=== PATIENT | male | born 1950 | race Caucasian/White ===

== ENCOUNTER 2022-12-28 16:41 | Inpatient (IN) | payer OTHER, SELFPAY ==
[~2022-12-28] VITALS: Ht 177.8 cm; Wt 83.8 kg
[2022-12-28 20:10] VITALS: BP 138/86; TEMP 98.2; O2SAT 92
[2022-12-28] MEDS: ACETAMINOPHEN 650MG ER TAB (TYLENOL ARTHRITIS) PO SCH (21:00)
[2022-12-28] MEDS ORDERED: MOM 30ML SUSPENSION UDC PO PRN (21:30)
[2022-12-28] MEDS ORDERED: MAALOX 30 ML SUSP *UDC PO PRN (21:30)
[2022-12-28] MEDS ORDERED: ACETAMINOPHEN TAB 650MG DOSE (2X325MG) PO PRN (21:30)
[2022-12-28] MEDS ORDERED: PRED1TABL PO (21:34)
[2022-12-28] MEDS ORDERED: OMEP40CA5 PO (21:34)
[2022-12-28] MEDS ORDERED: ASPI81TA26 PO (21:34)
[2022-12-28] MEDS ORDERED: AMLO1TAB25 PO (21:34)
[2022-12-28] MEDS ORDERED: ATOR40TA75 PO (21:34)
[2022-12-28] MEDS ORDERED: PYRI60TA2 PO (21:34)
[2022-12-28] MEDS ORDERED: VITA500C24 PO (21:34)
[2022-12-28] MEDS ORDERED: THERTAB52 PO (21:34)
[2022-12-28] MEDS ORDERED: POTA-151 PO (21:34)
[2022-12-28] MEDS ORDERED: IBUP1TAB6 PO (21:34)
[2022-12-28] MEDS ORDERED: TIZA10TA PO (21:34)
[2022-12-28] MEDS ORDERED: FOLI1TAB11 PO (21:34)
[2022-12-28] MEDS ORDERED: ACET650T61 PO (21:34)
[2022-12-28] MEDS ORDERED: METH2.5T48 PO (21:34)
[2022-12-28] MEDS ORDERED: GARL500C2 PO (21:34)
[2022-12-28] MEDS ORDERED: DOCU100C16 PO (21:34)
[2022-12-28] MEDS ORDERED: TUMS500C PO (21:34)
[2022-12-28] MEDS ORDERED: OMEGCAP9 PO (21:34)
[2022-12-28] MEDS ORDERED: B-12100021 PO (21:34)
[2022-12-28] MEDS ORDERED: LISI10TA22 PO (21:34)
[2022-12-28] MEDS ORDERED: HYDR50TAB PO (21:34)
[2022-12-28] MEDS ORDERED: HOME MED LIST COMPLETE! XX SCH (21:35)
[2022-12-28 22:00] VITALS: BP 132/60; TEMP 99; O2SAT 93
[2022-12-28 22:37] LABS: HEMATOCRIT 43.7 % (42.0-52.0); HEMOGLOBIN 15.1 g/dl (13.5-17.5); LYMPH # 0.4 10^3/uL (1.5-5.0); LYMPH % 8.2 % (24.0-44.0); MEAN CORPUSCULAR HEMOGLOBIN 31.5 pg (27.0-33.0); MEAN CORPUSCULAR HGB CONC 34.6 g/dl (32.0-36.5); MONO # 0.3 10^3/uL (0.0-0.8); MONO % 6.3 % (2.0-8.0); NEUTROPHILS # 4.6 10^3/uL (1.5-8.5); NEUTROPHILS % 85.3 % (36.0-66.0); PLATELET COUNT, AUTOMATED 207 10^3/uL (150-450); WHITE BLOOD COUNT 5.4 10^3/uL (4.0-10.0)
[2022-12-28 22:51] LABS: RSV AMPLIFICATION NEGATIVE (NEGATIVE)
[2022-12-28 22:59] LABS: BLOOD UREA NITROGEN 21 MG/DL (9-23); CALCIUM LEVEL 8.9 MG/DL (8.3-10.6); CARBON DIOXIDE LEVEL 27 MMOL/L (20-31); CHLORIDE LEVEL 100 MMOL/L (98-107); CREATININE FOR GFR 0.88 MG/DL (0.70-1.30); GLOMERULAR FILTRATION RATE > 60.0 (>42); GLUCOSE, FASTING 191 MG/DL (74-106); MAGNESIUM LEVEL 1.7 MG/DL (1.8-2.4); POTASSIUM SERUM 3.9 MMOL/L (3.5-5.1); SODIUM LEVEL 135 MMOL/L (136-145)
[2022-12-28] MEDS ORDERED: MAG SULF 1GM/100ML (MAG RUN) 1 GM in IV 1 EA IV ONE (23:00)
[2022-12-28] MEDS: CALCIUM CARBONATE 500 MG CHEW U/D PO SCH (23:12)
[2022-12-28] MEDS: DOCUSATE SODIUM 100MG CAPSULE PO SCH (23:13)
[2022-12-28] MEDS: tiZANidine 4 MG TAB PO SCH (23:13)
[2022-12-28] MEDS: PYRIDOSTIGMINE 60MG TABLET PO SCH (23:13)
[2022-12-29] VITALS (15 sets, daily range): BP systolic 109–139; BP diastolic 57–70; TEMP 97.9–99.1; O2SAT 90–96
[2022-12-29 05:10] LABS: BASO % 0.2 % (0.0-1.0); EOS % 0.7 % (0.0-3.0); HEMATOCRIT 43.2 % (42.0-52.0); HEMOGLOBIN 14.7 g/dl (13.5-17.5); LYMPH % 18.1 % (24.0-44.0); MEAN CORPUSCULAR HEMOGLOBIN 30.8 pg (27.0-33.0); MEAN CORPUSCULAR VOLUME 90.6 fl (80.0-96.0); MONO # 0.4 10^3/uL (0.0-0.8); NEUTROPHILS % 73.8 % (36.0-66.0); PLATELET COUNT, AUTOMATED 183 10^3/uL (150-450); RED BLOOD COUNT 4.77 10^6/uL (4.30-6.10); WHITE BLOOD COUNT 5.4 10^3/uL (4.0-10.0)
[2022-12-29 05:36] LABS: BLOOD UREA NITROGEN 19 MG/DL (9-23); CALCIUM LEVEL 8.7 MG/DL (8.3-10.6); CARBON DIOXIDE LEVEL 30 MMOL/L (20-31); CHLORIDE LEVEL 102 MMOL/L (98-107); CREATININE FOR GFR 0.93 MG/DL (0.70-1.30); GLOMERULAR FILTRATION RATE > 60.0 (>42); GLUCOSE, FASTING 95 MG/DL (74-106); MAGNESIUM LEVEL 1.9 MG/DL (1.8-2.4); POTASSIUM SERUM 3.5 MMOL/L (3.5-5.1); SODIUM LEVEL 136 MMOL/L (136-145)
[2022-12-29] MEDS: PYRIDOSTIGMINE 60MG TABLET PO SCH ×5 (06:15→19:58)
[2022-12-29] MEDS: HEPARIN SOD (PORCINE) 5000UNITS/ML 1ML VIAL/SYRINGE SC SCH ×3 (06:15→21:57)
[2022-12-29] MEDS ORDERED: IMMUNE GLOBULIN IV SCH (09:00)
[2022-12-29] MEDS: methylPREDNISolone 125MG 2ML VIAL IV SCH (09:45)
[2022-12-29] MEDS: ASCORBIC ACID 500 MG TAB PO SCH (09:46)
[2022-12-29] MEDS: ATORVASTATIN 20 MG TAB PO SCH (09:46)
[2022-12-29] MEDS: FOLIC ACID 1MG TAB PO SCH (09:46)
[2022-12-29] MEDS: ASPIRIN 81MG ENTERIC TABLET PO SCH (09:46)
[2022-12-29] MEDS: OMEPRAZOLE 20MG CAP PO SCH (14:04)
[2022-12-29] MEDS: IMMUNE GLOBULIN 10% 40 GM in IV 1 EA IV SCH (14:06)
[2022-12-29] MEDS: IMMUNE GLOBULIN 10% 20 GM in IV 1 EA IV SCH (14:07)
[2022-12-29] MEDS: tiZANidine 4 MG TAB PO SCH (19:59)
[2022-12-29] MEDS: CALCIUM CARBONATE 500 MG CHEW U/D PO SCH (19:59)
[2022-12-29] MEDS: ACETAMINOPHEN 650MG ER TAB (TYLENOL ARTHRITIS) PO SCH (19:59)
[2022-12-29] MEDS: DOCUSATE SODIUM 100MG CAPSULE PO SCH (20:09)
[2022-12-29] MEDS ORDERED: ACETAMINOPHEN 650MG ER TAB (TYLENOL ARTHRITIS) PO SCH (21:00)
[2022-12-29] MEDS ORDERED: DOCUSATE SODIUM 100MG CAPSULE PO SCH (21:00)
[2022-12-29] MEDS ORDERED: tiZANidine 4 MG TAB PO SCH (21:00)
[2022-12-29] MEDS ORDERED: CALCIUM CARBONATE 500 MG CHEW U/D PO SCH (21:00)
[2022-12-30 04:00] VITALS: BP 116/69; TEMP 98; O2SAT 96
[2022-12-30 05:16] LABS: HEMATOCRIT 41.4 % (42.0-52.0); HEMOGLOBIN 14.4 g/dl (13.5-17.5); LYMPH # 0.5 10^3/uL (1.5-5.0); LYMPH % 10.5 % (24.0-44.0); MEAN CORPUSCULAR HEMOGLOBIN 31.6 pg (27.0-33.0); MEAN CORPUSCULAR HGB CONC 34.8 g/dl (32.0-36.5); MEAN CORPUSCULAR VOLUME 90.8 fl (80.0-96.0); MONO # 0.4 10^3/uL (0.0-0.8); MONO % 8.7 % (2.0-8.0); NEUTROPHILS % 80.4 % (36.0-66.0); PLATELET COUNT, AUTOMATED 199 10^3/uL (150-450); RED BLOOD COUNT 4.56 10^6/uL (4.30-6.10); WHITE BLOOD COUNT 4.9 10^3/uL (4.0-10.0)
[2022-12-30] MEDS: HEPARIN SOD (PORCINE) 5000UNITS/ML 1ML VIAL/SYRINGE SC SCH ×3 (05:42→20:40)
[2022-12-30] MEDS: PYRIDOSTIGMINE 60MG TABLET PO SCH ×5 (05:42→20:40)
[2022-12-30 05:48] LABS: BLOOD UREA NITROGEN 25 MG/DL (9-23); CALCIUM LEVEL 8.2 MG/DL (8.3-10.6); CARBON DIOXIDE LEVEL 28 MMOL/L (20-31); CHLORIDE LEVEL 102 MMOL/L (98-107); CREATININE FOR GFR 0.97 MG/DL (0.70-1.30); GLOMERULAR FILTRATION RATE > 60.0 (>42); GLUCOSE, FASTING 113 MG/DL (74-106); MAGNESIUM LEVEL 1.8 MG/DL (1.8-2.4); POTASSIUM SERUM 4.2 MMOL/L (3.5-5.1); SODIUM LEVEL 134 MMOL/L (136-145)
[2022-12-30 08:12] VITALS: BP 114/63; TEMP 99; O2SAT 93
[2022-12-30] MEDS: methylPREDNISolone 125MG 2ML VIAL IV SCH (08:36)
[2022-12-30] MEDS: ATORVASTATIN 20 MG TAB PO SCH (08:36)
[2022-12-30] MEDS: OMEPRAZOLE 20MG CAP PO SCH (08:37)
[2022-12-30] MEDS: FOLIC ACID 1MG TAB PO SCH (08:37)
[2022-12-30] MEDS: ASPIRIN 81MG ENTERIC TABLET PO SCH (08:37)
[2022-12-30] MEDS: ASCORBIC ACID 500 MG TAB PO SCH (08:37)
[2022-12-30] MEDS: IMMUNE GLOBULIN 10% 40 GM in IV 1 EA IV SCH (13:40)
[2022-12-30 14:01] VITALS: BP 117/57; TEMP 98.9; O2SAT 94
[2022-12-30] MEDS ORDERED: POLYVINYL ALCOHOL OPHTH SOLN 15ML (LIQUITEARS) OU PRN (14:20)
[2022-12-30] MEDS: IMMUNE GLOBULIN 10% 20 GM in IV 1 EA IV SCH (16:36)
[2022-12-30 18:43] VITALS: BP 136/72; TEMP 97.7; O2SAT 98
[2022-12-30] MEDS: tiZANidine 4 MG TAB PO SCH (20:40)
[2022-12-30] MEDS: CALCIUM CARBONATE 500 MG CHEW U/D PO SCH (20:40)
[2022-12-30] MEDS: ACETAMINOPHEN 650MG ER TAB (TYLENOL ARTHRITIS) PO SCH (20:40)
[2022-12-30 20:43] VITALS: BP 135/70; TEMP 97.9; O2SAT 92
[2022-12-30] MEDS: DOCUSATE SODIUM 100MG CAPSULE PO SCH (21:00)
[2022-12-31 05:16] VITALS: BP 131/70; TEMP 97.9; O2SAT 93
[2022-12-31] MEDS: PYRIDOSTIGMINE 60MG TABLET PO SCH ×3 (05:17→13:16)
[2022-12-31] MEDS: HEPARIN SOD (PORCINE) 5000UNITS/ML 1ML VIAL/SYRINGE SC SCH ×2 (05:17→13:18)
[2022-12-31 05:48] LABS: LYMPH # 0.6 10^3/uL (1.5-5.0); LYMPH % 10.3 % (24.0-44.0); MEAN CORPUSCULAR HEMOGLOBIN 31.5 pg (27.0-33.0); MEAN CORPUSCULAR HGB CONC 34.1 g/dl (32.0-36.5); MEAN CORPUSCULAR VOLUME 92.1 fl (80.0-96.0); MONO # 0.5 10^3/uL (0.0-0.8); MONO % 8.7 % (2.0-8.0); NEUTROPHILS % 80.7 % (36.0-66.0); PLATELET COUNT, AUTOMATED 179 10^3/uL (150-450); RED BLOOD COUNT 4.45 10^6/uL (4.30-6.10); WHITE BLOOD COUNT 6.2 10^3/uL (4.0-10.0)
[2022-12-31 06:24] LABS: BLOOD UREA NITROGEN 29 MG/DL (9-23); CALCIUM LEVEL 8.6 MG/DL (8.3-10.6); CARBON DIOXIDE LEVEL 29 MMOL/L (20-31); CHLORIDE LEVEL 102 MMOL/L (98-107); CREATININE FOR GFR 0.92 MG/DL (0.70-1.30); GLOMERULAR FILTRATION RATE > 60.0 (>42); GLUCOSE, FASTING 102 MG/DL (74-106); MAGNESIUM LEVEL 1.9 MG/DL (1.8-2.4); POTASSIUM SERUM 4.3 MMOL/L (3.5-5.1); SODIUM LEVEL 134 MMOL/L (136-145)
[2022-12-31] MEDS: ATORVASTATIN 20 MG TAB PO SCH (08:18)
[2022-12-31] MEDS: ASCORBIC ACID 500 MG TAB PO SCH (08:18)
[2022-12-31 08:19] VITALS: BP 131/70
[2022-12-31] MEDS: FOLIC ACID 1MG TAB PO SCH (08:19)
[2022-12-31] MEDS: ASPIRIN 81MG ENTERIC TABLET PO SCH (08:19)
[2022-12-31] MEDS: OMEPRAZOLE 20MG CAP PO SCH (08:20)
[2022-12-31] MEDS ORDERED: PRED20TA PO (08:46)
[2022-12-31] MEDS ORDERED: PYRI60TA2 PO (08:46)
[2022-12-31] MEDS ORDERED: predniSONE 20 MG TAB PO SCH (09:00)
[2023-01-04] MEDS ORDERED: METHOTREXATE 2.5MG TAB PO SCH (09:00)
== END 2022-12-31 13:45 | disposition home or self-care (01) | DRG 57 ==
LOC: M MSPAV 20:04 → M ICU 21:35 → M MS5PR 12-30 18:32
PROVIDERS: ADMIT Internal Medicine; ATTEND Internal Medicine
DX: G70.01 Myasthenia gravis with (acute) exacerbation (principal); I10 Essential (primary) hypertension; M19.90 Unspecified osteoarthritis, unspecified site; R13.10 Dysphagia, unspecified; Z86.718 Personal history of other venous thrombosis and embolism; Z86.711 Personal history of pulmonary embolism; E78.5 Hyperlipidemia, unspecified; G89.29 Other chronic pain; Z88.5 Allergy status to narcotic agent; Z79.899 Other long term (current) drug therapy; Z79.82 Long term (current) use of aspirin; G43.909 Migraine, unspecified, not intractable, without status migrainosus; E83.42 Hypomagnesemia

== ENCOUNTER 2023-11-06 11:36 | Day surgery (SDC) | payer OTHER ==
[~2023-11-06] VITALS: Ht 172.7 cm; Wt 87.0 kg
[~2023-11-06 11:36] MED LIST: ACET650T61 PO; AMLO1TAB25 PO; ASPI81TA26 PO; ATOR40TA75 PO; B-12100021 PO; DOCU100C16 PO; FOLI1TAB11 PO; GARL500C6 PO; HYDR50TAB PO; IBUP1TAB6 PO; LISI10TA22 PO; METH2.5T48 PO; OMEGCAP9 PO; OMEP40CA5 PO; POTA-151 PO; PRED1TABL PO; PRED20TA PO; PRED5TA PO; PYRI60TA2 PO; SYST1SOL OU; THERTAB52 PO; TIZA10TA PO; TUMS500C PO; VITA500C24 PO
[2023-11-06] MEDS ORDERED: fentaNYL 100 MCG/2 ML INJECTION As Ordered ONE (13:39)
[2023-11-06] MEDS ORDERED: MIDAZOLAM INJ 2MG/2ML VIAL As Ordered ONE (13:40)
[2023-11-06] MEDS ORDERED: CIPROFLOXACIN 0.3% OPHTH OINTMENT As Ordered ONE (13:45)
[2023-11-06] MEDS: LIDOCAINE 3.5 % 1ML OPHTH TOPICAL GEL OU ONE (14:10)
[2023-11-06] MEDS: LIDOCAINE 2% W/EPINEPHRINE 20ML VIAL **PRES FREE As Ordered ONE (14:11)
[2023-11-06] MEDS: LIDOCAINE 1% SDV 5ML VIAL As Ordered ONE (14:11)
[2023-11-06] MEDS: POVIDONE-IODINE 5% OPHTH PREP SOL 30ML As Ordered ONE (14:11)
[2023-11-06 14:28] VITALS: BP 125/61; TEMP 97.2; O2SAT 97
== END 2023-11-06 14:48 | disposition home or self-care (01) ==
LOC: M SDC 11:36
PROVIDERS: ATTEND Ophthalmology
DX: H02.834 Dermatochalasis of left upper eyelid (principal); H02.831 Dermatochalasis of right upper eyelid; I10 Essential (primary) hypertension; E78.00 Pure hypercholesterolemia, unspecified; K21.9 Gastro-esophageal reflux disease without esophagitis; G70.00 Myasthenia gravis without (acute) exacerbation; Z79.899 Other long term (current) drug therapy; Z88.5 Allergy status to narcotic agent; Z90.89 Acquired absence of other organs; Z87.891 Personal history of nicotine dependence
CPT/HCPCS: 15823; 88302; J2250; J3010

== ENCOUNTER → 2023-12-10 | Outpatient (CLI) | payer OTHER ==
[~2023-12-10] MED LIST changes: +BARIUM SULFATE 700 MG TABLET (E-Z-DISK) As Ordered ONE; +E-Z-PAQUE 96% w/w SUSP 176GM BTL As Ordered ONE; +VARIBAR NECTAR 40% w/v 240ML SUSP BTL As Ordered ONE; +VARIBAR PUDDING 40% w/v 230ML TUBE As Ordered ONE
== END ==
LOC: M RAD 10:49
PROVIDERS: ATTEND Otolaryngology
DX: R13.10 Dysphagia, unspecified (principal)

== ENCOUNTER 2024-06-11 07:50 | Day surgery (SDC) | payer MEDICARE, OTHER ==
[~2024-06-11] VITALS: Ht 177.8 cm; Wt 93.8 kg
[~2024-06-11 07:50] MED LIST changes: -BARIUM SULFATE 700 MG TABLET (E-Z-DISK) As Ordered ONE; -E-Z-PAQUE 96% w/w SUSP 176GM BTL As Ordered ONE; -VARIBAR NECTAR 40% w/v 240ML SUSP BTL As Ordered ONE; -VARIBAR PUDDING 40% w/v 230ML TUBE As Ordered ONE
[2024-06-11] MEDS ORDERED: LIDOCAINE 2% 100MG/5ML SDV (FOR ANES.) As Ordered ONE (07:59)
[2024-06-11] MEDS ORDERED: fentaNYL 100 MCG/2 ML INJECTION As Ordered ONE (07:59)
[2024-06-11] MEDS ORDERED: propofoL 200 MG/20 ML VIAL As Ordered ONE (09:18)
[2024-06-11] MEDS ORDERED: ONDANSETRON 4MG 2ML VIAL As Ordered ONE (09:35)
[2024-06-11 09:52] VITALS: BP 136/78; TEMP 98.2; O2SAT 94
== END 2024-06-11 10:00 | disposition home or self-care (01) ==
LOC: M OPP 07:50
PROVIDERS: ATTEND Internal Medicine Gastroenterology
DX: R13.19 Other dysphagia (principal); Z88.5 Allergy status to narcotic agent; Z79.52 Long term (current) use of systemic steroids; Z79.899 Other long term (current) drug therapy; Z87.891 Personal history of nicotine dependence
CPT/HCPCS: 43235; J2405; J3010